=== PATIENT | female | born 1945 | race Caucasian/White ===

== ENCOUNTER → 2019-01-01 | Outpatient (CLI) | payer MEDICARE ==
[~2019-01-01] MED LIST: BIEST PO; FISH1000; L-LYSINE500 MG PO; Magnesium Gluc500 MG PO; Multiple Vitam1 EAC1; VITAMIN D32000 UNIT PO
[2019-01-03 16:06] LABS: M-SPIKE, % Not Observed % (Not Observed); PROTEIN,TOTAL,URINE 4.2 mg/dL (Not Estab.)
== END | disposition home or self-care (01) ==
LOC: LAB SHORT 08:05 → LAB UCHC 08:05 → LAB FUT 12-30 15:40
PROVIDERS: Internal Medicine
DX: Z00.01 Encounter for general adult medical examination with abnormal findings (principal)
CPT/HCPCS: 81050; 84166; 86335

== ENCOUNTER → 2024-06-01 | Outpatient (CLI) | payer MEDICARE | LOC: LAB 17:00 → LAB SHORT 17:00 | DX: N39.0 Urinary tract infection, site not specified (principal) | CPT/HCPCS: 87086 ==